=== PATIENT | female | born 1980 | race Caucasian/White ===

== ENCOUNTER 2019-06-08 03:42 | Emergency (ER) | payer SELFPAY ==
[2019-06-08] MEDS: PHENAZOPYRIDINE HCL 200 MG TABLET PO ONE (04:17)
[2019-06-08] MEDS: AZITHROMYCIN 250 MG TABLET PO ONE (04:20)
[2019-06-08] MEDS: CEFTRIAXONE SODIUM IM ONE (04:20)
[2019-06-08] MEDS: LIDOCAINE 1% IM ONE (04:20)
[2019-06-08] MEDS: Lidocaine 1% 5ml 10 MG/ML VIAL IJ ONE (04:20)
--- NOTE | 2019-06-08 04:22 | ED Physician Documentation ---
General Adult - HISTORIAN Historian: patient - HPI Stated Complaint: Burning with urination, urinary retention Chief Complaint: General Adult Onset: hours Timing: still present Severity: moderate Further Comments: yes (Pt is a 38 yo female with dysuria x 1 day. No fever. No n/v. No back pain. Pt has had multiple small volume voids, with the feeling th at she still needs to void afterwards. No vag discharge. No fever.) - ROS CONST: no problems EYES/ENT: none CVS/RESP: none GI/: problems urinating MS/SKIN/LYMPH: none - PAST HX Past History: none Allergies/Adverse Reactions: Allergies Allergy/AdvReac Type Severity Reaction Status Date / Time No Known Allergies Allergy Verified 06/08/19 03:56 Home Medications: Ambulatory Orders Medication Instructions Recorded Sulfamethoxazole/Trimethoprim 1 each PO Q12H #14 tablet 06/08/19 [Bactrim Ds] - SOCIAL HX Smoking History: cigarettes - FAMILY HX Family History: No - VITAL SIGNS Vital Signs: Vital Signs Temp Pulse Resp BP Pulse Ox 97.2 F L 80 19 144/71 99 06/08/19 03:42 06/08/19 03:42 06/08/19 03:42 06/08/19 03:42 06/08/19 03:42 - REVIEWED ASSESSMENTS Nursing Assessment Reviewed: Yes Vitals Reviewed: Yes Progress - Progress Progress: u/a neg Rocephin 500 mg IM in ER (with lidocaine) Azithromycin 1000 mg po in ER Pyridium 200 mg po in ER Rx Bactrim DS bid x 7 days. OTC Pyridium as directed, x 2 days prn U/A for GC/Chlamydia pending. ED Results Lab/Radiology - Orders Orders: ED Orders Category Date Time Status GC [CHLAMYDIA & GONORRHOEAE] Stat Lab 06/08/19 03:45 Ordered UA [URINALYSIS] Routine Lab 06/08/19 Ordered Azithromycin [Zithromax] Med 06/08/19 04:13 Discontinued 1,000 mg PO NOW ONE Lidocaine 1% 5ml [Xylocaine] Med 06/08/19 04:19 Discontinued 50 mg IJ NOW ONE Phenazopyridine HCl [Pyridium] Med 06/08/19 04:09 Discontinued 200 mg PO NOW ONE cefTRIAXone SODIUM [Rocephin] 500 mg Med 06/08/19 04:13 Discontinued Lidocaine 1% 5ml [Xylocaine] 1 ml IM NOW General Adult Physical Exam - PHYSICAL EXAM GENERAL APPEARANCE: moderate distress EENT: pharynx normal NECK: normal inspection, supple RESPIRATORY: no resp distress, chest non-tender, breath sounds normal CVS: reg rate & rhythm, heart sounds normal ABDOMEN: soft, no organomegaly, normal bowel sounds, non-tender BACK: normal inspection, no CVA tenderness SKIN: warm/dry, normal color EXTREMITIES: non-tender, normal range of motion, no evidence of injury NEURO: oriented X3, motor nml, sensation nml Discharge Clincal Impression: Dysuria Prescriptions: Sulfamethoxazole/Trimethoprim [Bactrim Ds] 1 each PO Q12H #14 tablet Referrals: Primary Doctor,No [Primary Care Provider] - Condition: Stable Disposition: 01 HOME, SELF-CARE Decision to Admit: NO Decision Time: 04:25
[2019-06-08 04:46] VITALS: BP 142/68
[2019-06-08 06:28] LABS: APPEARANCE,URINE CLOUDY (CLEAR); COLOR,URINE YELLOW (YELLOW); OCCULT BLOOD,URINE NEGATIVE (NEGATIVE); PH URINE 5.5 (5.0 - 8.0); UROBILINOGEN URINE 0.2 Eu (0.2-1.0)
== END 2019-06-08 04:30 | disposition home or self-care (01) ==
LOC: ED 03:42
DX: R30.0 Dysuria (principal)
CPT/HCPCS: 81002; 87491; 87591; 96372; 99283; 99284; J0696